=== PATIENT | female | born 1980 | race Two or more races ===

== ENCOUNTER 2017-10-09 12:19 | Outpatient (CLI) | payer BC | END 2017-10-09 12:59 | disposition home or self-care (01) | LOC: LC 12:19 | PROVIDERS: ATTEND Student in an Organized Health Care Education/Training Program | PROC: 4A1HXCZ Monitoring of Products of Conception, Cardiac Rate, External Approach (ICD-10-PCS; principal; 2017-10-09) | DX: O09.523 Supervision of elderly multigravida, third trimester (principal); Z3A.34 34 weeks gestation of pregnancy | CPT/HCPCS: 59025 ==

== ENCOUNTER 2017-10-13 12:12 | Outpatient (CLI) | payer BC ==
--- NOTE | 2017-10-13 12:51 | Non Stress Test Report ---
Non Stress Test Datetime Report Generated by CPN: 10/13/2017 12:51 DEMOGRAPHIC EGA NST: 35.0 EGA NST: 34.3 INDICATION Indication for Study: Ordered by Provider Indication for Study: Ordered by Provider Indication for Study: Other Indication for Study (NST) Other: from the office Indication for Study (NST) Other: AMA Indication for Study (NST) Other: repeat from office, AMA VITAL SIGNS Temperature - NST: 98.2 Temperature - NST: 98.3 Pulse - NST: 93 RESP - NST: 18 RESP - NST: 18 NBPSYS NST: 94 NBPDIA NST: 56 MONITORING Monitor Explained: Monitor Explained; Test Explained; Patient Verbalized Understanding Monitor Explained: Monitor Explained; Test Explained; Patient Verbalized Understanding Monitor Explained: Monitor Explained; Test Explained; Patient Verbalized Understanding Time on Monitor: 10/13/2017 12:20 Time on Monitor: 10/09/2017 12:33 Time off Monitor: 10/13/2017 12:45 NST Duration: 25 NST INTERVENTIONS NST Interventions: PO Hydration; Reposition Patient NST Interventions: PO Hydration Physician Notified NST: DR DAVIS Physician Notified NST: DR DAVIS BABY A: [id number] BABY A Movement : Present Movement : Present Contraction Frequency : X1 Contraction Frequency : irregular FHR Baseline : 145 FHR Baseline : 135 Accelerations : 15X15 Accelerations : 15X15 Decelerations : None Variability : Moderate 6-25bpm Variability : Moderate 6-25bpm NST Review: Meets Criteria for Reactive NST NST Review: Meets Criteria for Reactive NST NST Review and Verified By : MALU SETH RN NST Results: Reactive NST Results: Reactive NST REPORT Report Trigger: Send Report
== END 2017-10-13 12:50 | disposition home or self-care (01) ==
LOC: LC 12:12
PROVIDERS: ATTEND Obstetrics & Gynecology
PROC: 4A1HXCZ Monitoring of Products of Conception, Cardiac Rate, External Approach (ICD-10-PCS; principal; 2017-10-13)
DX: O09.523 Supervision of elderly multigravida, third trimester (principal); Z3A.35 35 weeks gestation of pregnancy
CPT/HCPCS: 59025

== ENCOUNTER 2017-11-11 17:32 | Inpatient (IN) | payer BC ==
--- NOTE | 2017-11-11 18:26 | Admission Physical ---
Datetime Report Generated by CPN: 11/11/2017 18:26 CURRENT ADMISSION Chief Complaint: Uterine Contractions Indication for Induction: Not Applicable Admit Impression : Term, Intrauterine ; Active Labor Admit Plan: Admit to Unit ALLERGIES Medication Allergies: Yes Medication Allergies: Penicillins (10/09/2017) Latex: No Latex Allergies OBSTETRICAL HISTORY EDC: 11/17/2017 00:00 : 5 Para: 3 Term: 3 : 0 SAB: 0 IAB: 0 Ectopic: 0 Livin Cesareans: 0 VBACs: 0 Multiple Births: 0 PHYSICAL EXAM General: Normal HEENT: Normal Neurologic: Normal Thyroid: Normal Heart: Normal Lungs: Normal Breast: Deferred Back: Normal Abdomen: Normal Genitourinary Exam: Normal Extremities: Normal DTRs: Normal Pelvic Type: Adequate Vital Signs: Reviewed VAGINAL EXAM Dilatation: 5 Effacement: 90 Station: -1 MEMBRANES Pooling: Negative Membranes: Intact FETUS A EGA: 39.1 Monitoring: External US FHR- Baseline: 130 Variability: Moderate 6-25bpm Decelerations: None FHR Category: Category I Presentation: Vertex Admit Comment: Admit for labor. She may have an epidural. INFORMED CONSENT Signature: with User ID: [email or web address]
[2017-11-11 18:38] LABS: APPEARANCE,URINE SLIGHTLY-CLOUDY; BILIRUBIN,URINE NEGATIVE (NEGATIVE); COLOR,URINE YELLOW; GLUCOSE, URINE NEGATIVE (NEGATIVE); KETONES,URINE NEGATIVE (NEGATIVE); LEUKOCYTE ESTERASE,URINE TRACE (NEGATIVE); NITRITE,URINE NEGATIVE (NEGATIVE); PROTEIN,URINE NEGATIVE (NEGATIVE); URINE SPECIFIC GRAVITY 1.012; UROBILINOGEN,URINE NEGATIVE mg/dL (<2.0)
[2017-11-11 18:51] LABS: ABSOLUTE EOSINOPHILS # (AUTO) 0.1 10^3/uL (0.0-0.6); ABSOLUTE LYMPHOCYTES (AUTO) 1.5 10^3/uL (0.5-4.7); ABSOLUTE NEUT (AUTO) 8.1 10^3/uL (1.7-8.2); BASOPHILS % (AUTO) 0.5 % (0-2); EOSINOPHILS % (AUTO) 0.8 % (0-6); HEMATOCRIT 35.1 % (36.0-47.0); HEMOGLOBIN 11.4 g/dL (12.0-15.5); LYMPHOCYTES % (AUTO) 14.1 % (13-45); MEAN CORPUSCULAR HEMOGLOBIN 26.3 pg (27.0-33.4); MEAN CORPUSCULAR HGB CONC 32.5 g/dL (32.0-36.0); MEAN CORPUSCULAR VOLUME 81 fl (80-97); MONOCYTES % (AUTO) 9.1 % (3-13); PLATELET COUNT 265 10^3/uL (150-450); RED BLOOD COUNT 4.33 10^6/uL (3.72-5.28); RED CELL DISTRIBUTION WIDTH 17.5 % (11.5-14.0); SEGMENTED NEUTROPHILS % (AUTO) 75.5 % (42-78); TOTAL CELLS COUNTED % (AUTO) 100 %; WHITE BLOOD COUNT 10.7 10^3/uL (4.0-10.5)
[2017-11-11 18:57] LABS: URINE AMPHETAMINES SCREEN NEGATIVE; URINE BARBITURATES SCREEN NEGATIVE; URINE BENZODIAZEPINES SCREEN NEGATIVE; URINE COCAINE SCREEN NEGATIVE; URINE MARIJUANA (THC) SCREEN NEGATIVE; URINE METHADONE SCREEN NEGATIVE; URINE PHENCYCLIDINE SCREEN NEGATIVE
[2017-11-11] MEDS ORDERED: LIDOCAINE 1% INJ-PF (10 MG/ML) 30 ML SDV ONE (19:19)
[2017-11-11] MEDS ORDERED: MISOPROSTOL 0.2 MG TABLET ONE (19:19)
[2017-11-11] MEDS ORDERED: EPHEDRINE SULFATE INJ 50 MG/1 ML AMPULE ONE (19:19)
[2017-11-11] MEDS ORDERED: OXYTOCIN/NORMAL SALINE 20 UNIT/1,000 ML RTUINJ ONE (19:19)
[2017-11-11] MEDS ORDERED: BUPIVACAINE HCL 0.5 % INJ/PF 30 ML SDV ONE (19:20)
[2017-11-11] MEDS ORDERED: FENTANYL/BUPIVACAINE/NS/PF 200 MCG/100 ML RTUINJ EPI ONE (19:20)
[2017-11-11] MEDS ORDERED: ACETAMINOPHEN WITH CODEINE #3 TABLET ONE (22:15)
[2017-11-11] MEDS ORDERED: IBUPROFEN 800 MG TABLET ONE (22:16)
[2017-11-11] MEDS ORDERED: DIBUCAINE 1% OINTMENT 28 GM TP PRN (22:26)
[2017-11-11] MEDS ORDERED: ACETAMINOPHEN WITH CODEINE #3 TABLET PO PRN (22:26)
[2017-11-11] MEDS ORDERED: OXYTOCIN/NORMAL SALINE 20 UNIT/1,000 ML RTUINJ IV PRN (22:26)
[2017-11-11] MEDS ORDERED: MEASLES,MUMPS&RUBELLA VACC/PF 0.5 ML VIAL SUBCUT PRN (22:26)
[2017-11-11] MEDS ORDERED: ZOLPIDEM TARTRATE 5 MG TABLET PO PRN (22:26)
[2017-11-11] MEDS ORDERED: DIPH/PERTUSS(ACELL)/TETANUS VAC/PF 0.5 ML SYR (>=10YO) IM PRN (22:26)
[2017-11-11] MEDS ORDERED: BENZOCAINE/MENTHOL AEROSOL SPRAY 56 ML TOP PRN (22:26)
--- NOTE | 2017-11-11 23:11 | Delivery Summary ---
Del Sum A-C Datetime Report Generated by CPN: 11/11/2017 23:11 DELIVERY PERSONNEL DELIVERY PERSONNEL: [id number] Delivery Doctor:: Chrissie Jimenez CNM Labor and Delivery Nurse:: Aretha Adan RN Labor and Delivery Nurse:: Claudia Jacob RN Nursery Nurse:: Lesly Hess RN MSN Log Washer/BRUSH HAND: Damari Orlando, TAVERN OPERATOR MATERNAL INFORMATION Delivery Anesthesia: Epidural Medications After Delivery: Pitocin Drip 20 Units/1000ml NSS Maternal Complications: None Provider Comments: Head delivered by RN upon entering the room. I then noted a nuchal cord, was unable to reduce, delivered anterior shoulder and somersaulted baby through toward Lt thigh. Infant vigorous, to mothers abd, dried. Cord clamped x 2 cut per FOB, Placenta intact via henderson. Bleeding stabilized, pitocin infusing. Mother and infant stable. LABOR SUMMARY EDC: 11/17/2017 00:00 No. Babies in Womb: 1 Attempted: No Labor Anesthesia: Epidural LABOR INFORMATION Reason for Induction: Not Applicable Reason for Induction- Other: n/a Onset of Labor: 11/11/2017 17:51 Complete Dilatation: 11/11/2017 19:57 Oxytocin: N/A Group B Beta Strep: negative Antibiotics # of Doses: 0 Steroids Given: None Reason Steroids Not Administered: Not Applicable MEMBRANES Membranes Rupture Method: Spontaneous Rupture of Membranes: 11/11/2017 19:59 Length of Rupture (hr): 0.10 Amniotic Fluid Color: Clear Amniotic Fluid Amount: Moderate Amniotic Fluid Odor: Normal STAGES OF LABOR Stage 1 hr: 2 Stage 1 min: 6 Stage 2 hr: 0 Stage 2 min: 8 Stage 3 hr: 0 Stage 3 min: 7 Total Time in Labor hr: 2 Total Time in Labor min: 21 VAGINAL DELIVERY Episiotomy: None Laceration #1: Perineal Laceration Extension #1: First Degree Laceration #2: Periurethral Laceration Extension #2: First Degree Laceration Repair: No Laceration Repair Note: no repair needed, approximated with natural position and not bleeding Sponge Count Correct: N/A Sharps Count Correct: N/A CSECTION DELIVERY Primary Indication: N/A Secondary Indication: N/A CSection Incidence: N/A Labor: N/A Elective: N/A CSection Incision: N/A BABY A INFORMATION Infant Delivery Date/Time: 11/11/2017 20:05 Method of Delivery: Vaginal Born in Route : No : N/A Forceps: N/A Vacuum Extraction: N/A Shoulder Dystocia : No PRESENTATION/POSITION BABY A Presentation: Cephalic Cephalic Presentation: Vertex Vertex Position: Left Occipital Anterior Breech Presentation: N/A PLACENTA INFORMATION BABY A Placenta Delivery Time : 11/11/2017 20:12 Placenta Method of Delivery: Spontaneous Placenta Status: Delivered SCORES BABY A Heart Rate 1 min: >100 bpm Resp Effort 1 min: Good Cry Reflex Irritability 1 min: Cough or Sneeze or Pulls Away Muscle Tone 1 min: Active Motion Color 1 min: Body [place], Extremities Blue Resuscitation Effort 1 min: Tactile Stimulation SCORE 1 MIN: 9 Heart Rate 5 min: >100 bpm Resp Effort 5 min: Good Cry Reflex Irritability 5 min: Cough or Sneeze or Pulls Away Muscle Tone 5 min: Active Motion Color 5 min: Body [place], Extremities Blue Resuscitation Effort 5 min: Tactile Stimulation SCORE 5 MIN: 9 INFANT INFORMATION BABY A Gestational Age at Delivery: 39.1 Gestational Status: Full Term- 39- 40.6 Weeks Infant Outcome : Liveborn Condition : Stable Sex: Female IDENTIFICATION BABY A Infant Verification Date/Time: 11/11/2017 20:25 ID Band Number: [id number] Mother's Name Verified: Yes Infant RN Verifying Infant: S. Lattibealukeir, RNC _ R. Vern, RN WEIGHT/LENGTH BABY A Birthweight (gm): 3405 Infant Weight (lb): 7 Infant Weight (oz): 8 Infant Length (in): 20.00 Infant Length (cm): 50.80 CORD INFORMATION BABY A No. Cord Vessels: 3 Nuchal Cord : Around Neck x1, Tight Cord Blood Taken: Yes-For Storage (Mom's Blood type +) Infant Suction: Mouth; Nose ASSESSMENT BABY A Complications: None Physical Findings at Delivery: Within Normal Limits Infant Respirations: Appears Normal Drafting Technician/ALS Called : No Care By: K. Hess, RN Transferred To: Remains with Mother BABY B INFORMATION : N/A SIGNATURES Assignment: Ale Flor MD Signature: with User ID: [email or web address] : with User ID: [email or web address] : I was personally available for consultation and serving as supervising physician for the MLP.
[2017-11-12 09:20] LABS: HEMATOCRIT 31.3 % (36.0-47.0); MEAN CORPUSCULAR HEMOGLOBIN 26.2 pg (27.0-33.4); MEAN CORPUSCULAR HGB CONC 31.9 g/dL (32.0-36.0); MEAN CORPUSCULAR VOLUME 82 fl (80-97); PLATELET COUNT 233 10^3/uL (150-450); RED BLOOD COUNT 3.81 10^6/uL (3.72-5.28); RED CELL DISTRIBUTION WIDTH 17.5 % (11.5-14.0); WHITE BLOOD COUNT 14.2 10^3/uL (4.0-10.5)
--- NOTE | 2017-11-12 10:03 | PDOC PROGRESS REPORT ---
Subjective-OB Progress Note for:: 11/12/17 Subjective: Doing well, no c/o, voiding, eating well Physical Exam (OB) Vital Signs: Temp Pulse Resp BP Pulse Ox 98.4 F 103 H 16 109/74 99 11/11/17 23:48 11/11/17 23:48 11/11/17 23:48 11/11/17 23:48 11/11/17 23:48 Intake & Output 11/11/17 11/12/17 11/13/17 06:59 06:59 06:59 Weight 95.2 kg - PIH/Pre-Eclampsia DTR's: 2 + Epigastric Pain: No Visual Changes: No - Lochia Lochia Color: Rubra/Red - Abdomen Description: Soft Hernia Present: No Fundal Description: Firm Fundal Height: u/u - u/2 Objective-Diagnostic Laboratory: 11/12/17 07:12 11/11/17 11/11/17 11/11/17 17:45 18:35 18:35 WBC 10.7 H RBC 4.33 Hgb 11.4 L Hct 35.1 L MCV 81 MCH 26.3 L MCHC 32.5 RDW 17.5 H Plt Count 265 Seg Neutrophils % 75.5 Lymphocytes % 14.1 Monocytes % 9.1 Eosinophils % 0.8 Basophils % 0.5 Absolute Neutrophils 8.1 Absolute Lymphocytes 1.5 Absolute Monocytes 1.0 Absolute Eosinophils 0.1 Absolute Basophils 0.0 Urine Color YELLOW Urine Appearance SLIGHTLY-CLOUDY Urine pH 6.0 Ur Specific [place] 1.012 Urine Protein NEGATIVE Urine Glucose (UA) NEGATIVE Urine Ketones NEGATIVE Urine Blood SMALL H Urine Nitrite NEGATIVE Ur Leukocyte Esterase TRACE H Blood Type B POSITIVE Antibody Screen NEGATIVE 11/12/17 07:12 WBC 14.2 H RBC 3.81 Hgb 10.0 L Hct 31.3 L MCV 82 MCH 26.2 L MCHC 31.9 L RDW 17.5 H Plt Count 233 Seg Neutrophils % Lymphocytes % Monocytes % Eosinophils % Basophils % Absolute Neutrophils Absolute Lymphocytes Absolute Monocytes Absolute Eosinophils Absolute Basophils Urine Color Urine Appearance Urine pH Ur Specific [place] Urine Protein Urine Glucose (UA) Urine Ketones Urine Blood Urine Nitrite Ur Leukocyte Esterase Blood Type Antibody Screen Assessment and Plan(PN) - Assessment and Plan (1) Vaginal delivery Is this a current diagnosis for this admission?: Yes - Time Spent with Patient Time with patient: Less than 15 minutes Medications reviewed and adjusted accordingly: Yes - Disposition Anticipated Discharge: Home Within: within 24 hours
[2017-11-12] MEDS: DOCUSATE SODIUM 100 MG CAPSULE PO SCH ×2 (10:06→17:40)
[2017-11-12] MEDS: SENNOSIDES/DOCUSATE 8.6-50 MG 1 EACH TABLET PO SCH (10:06)
[2017-11-12] MEDS: PRENATAL VITAMIN W DHA CAPSULE PO SCH (10:06)
[2017-11-12] MEDS: FERROUS SULFATE 325 MG TABLET PO SCH ×2 (10:06→17:40)
[2017-11-12] MEDS: IBUPROFEN 800 MG TABLET PO SCH ×2 (13:00→22:44)
[2017-11-12] MEDS: ACETAMINOPHEN WITH CODEINE #3 TABLET PO PRN (13:01)
[2017-11-13] MEDS: IBUPROFEN 800 MG TABLET PO SCH ×3 (00:40→14:25)
[2017-11-13] MEDS: ACETAMINOPHEN WITH CODEINE #3 TABLET PO PRN (09:26)
[2017-11-13] MEDS: DOCUSATE SODIUM 100 MG CAPSULE PO SCH (09:26)
[2017-11-13] MEDS: PRENATAL VITAMIN W DHA CAPSULE PO SCH (09:26)
[2017-11-13] MEDS: SENNOSIDES/DOCUSATE 8.6-50 MG 1 EACH TABLET PO SCH (09:26)
[2017-11-13] MEDS: FERROUS SULFATE 325 MG TABLET PO SCH (09:26)
[2017-11-13 10:45] VITALS: BP 109/74
--- NOTE | 2017-11-13 12:59 | PDOC DISCHARGE SUMMARY ---
Final Diagnosis Discharge Date: 11/13/17 - Final Diagnosis (1) Vaginal delivery Is this a current diagnosis for this admission?: Yes (2) Acute blood loss anemia Is this a current diagnosis for this admission?: Yes (3) High vaginal laceration during delivery, delivered Is this a current diagnosis for this admission?: Yes Discharge Data - Discharge Medication Prescriptions: Ibuprofen [Motrin 800 mg Tablet] 800 mg PO Q8HP PRN #60 tablet PRN Reason: Abdominal Cramping Docusate Sodium [Colace 100 mg Capsule] 100 mg PO BID #60 capsule Ferrous Sulfate [Feosol 325 mg Tablet] 325 mg PO BID #60 tablet Home Medications: Vit/Iron Fum/Folic AC [ Tablet] 1 each PO DAILY 10/09/17 Zolpidem Tartrate [Ambien 5 mg Tablet] 5 mg PO PRN PRN 10/09/17 Docusate Sodium [Colace 100 mg Capsule] 100 mg PO BID #60 capsule 11/13/17 Ferrous Sulfate [Feosol 325 mg Tablet] 325 mg PO BID #60 tablet 11/13/17 Ibuprofen [Motrin 800 mg Tablet] 800 mg PO Q8HP PRN #60 tablet 11/13/17 Reason(s) for Admission: Onset of Labor Procedures: NST, Ultrasound Intrapartum Procedure(s): Spontaneous Vaginal Delivery Complication(s): Laceration-Vaginal Laceration-Degree: 1st - Diagnosis Test Laboratory: Temp Pulse Resp BP Pulse Ox 97.9 F 77 17 109/74 98 11/13/17 10:44 11/13/17 10:44 11/13/17 10:44 11/13/17 10:44 11/13/17 10:44 11/11/17 11/11/17 11/12/17 17:45 18:35 07:12 RBC 4.33 3.81 Hgb 11.4 L 10.0 L Hct 35.1 L 31.3 L Urine Opiates Screen NEGATIVE - Discharge information/Instructions Discharge Activity: Activity As Tolerated, Balance Activity w/Rest, No Lifting Over 10 Pounds, Pelvic Rest, Slowly Increase Activity, No tub bath, Walk Frequently Discharge Diet: Regular Disposition: HOME, SELF-CARE Follow up with: [facility] in: 4, Weeks
== END 2017-11-13 16:00 | disposition home or self-care (01) | DRG 775 ==
LOC: LC 17:32 → LR 18:11 → 2S 22:45
PROVIDERS: ADMIT Obstetrics & Gynecology; ATTEND Obstetrics & Gynecology
PROC: 10E0XZZ Delivery of Products of Conception, External Approach (ICD-10-PCS; principal; 2017-11-11)
PROC: 4A1HXCZ Monitoring of Products of Conception, Cardiac Rate, External Approach (ICD-10-PCS; 2017-11-11)
DX: O69.1XX0 Labor and delivery complicated by cord around neck, with compression, not applicable or unspecified (principal); O71.4 Obstetric high vaginal laceration alone; D62 Acute posthemorrhagic anemia; O99.02 Anemia complicating childbirth; Z88.0 Allergy status to penicillin; Z3A.39 39 weeks gestation of pregnancy; Z37.0 Single live birth
CPT/HCPCS: 36415; 80307; 81005; 85025; 85027; 86592; 86850; 86900; 86901; J2590; J3490